=== PATIENT | female | born 2000 | race Caucasian/White ===

== ENCOUNTER 2024-10-14 11:53 | Emergency (ER) | payer OTHER ==
[~2024-10-14] VITALS: Ht 170.2 cm; Wt 65.8 kg
[2024-10-14 12:25] VITALS: TEMP 98.4
[2024-10-14 16:32] VITALS: BP 132/70; O2SAT 99
== END 2024-10-14 14:02 | disposition home or self-care (01) ==
LOC: ER 11:53
DX: M94.0 Chondrocostal junction syndrome [Tietze] (principal); Z60.2 Problems related to living alone
CPT/HCPCS: 71045-TC

== ENCOUNTER 2025-09-04 22:55 | Emergency (ER) | payer OTHER ==
[~2025-09-04] VITALS: Ht 170.2 cm; Wt 63.5 kg
[2025-09-05 00:40] VITALS: BP 135/91; TEMP 98.5; O2SAT 98
== END 2025-09-05 02:19 | disposition home or self-care (01) ==
LOC: ER 22:56
DX: J34.89 Other specified disorders of nose and nasal sinuses (principal); Z60.2 Problems related to living alone